=== PATIENT | male | born 1960 | race Caucasian/White ===

== ENCOUNTER 2021-03-29 11:43 | Inpatient (IN) | payer OTHER ==
[~2021-03-29] VITALS: Ht 177.8 cm; Wt 99.8 kg
[~2021-03-29 11:43] MED LIST: DOXYCYCLINE MO100 MG PO; PREDNISONE20 MG PO; VENTOLIN HFA IN18 GM INH; XARELTO15 MG PO
[2021-03-29 12:36] LABS: BASOPHIL 0.2 % (0-2); EOSINOPHIL 0 % (0-5); HCT 46.7 % (42.0-52.0); HGB 16.5 g/dl (13.2-18.0); LYMPHOCYTE 16.1 % (15-48); MCH 31.4 pg (25.0-31.0); MCHC 35.3 g/dL (32.0-36.0); MCV 88.8 fL (78.0-100.0); MONOCYTE 5.5 % (0-12); MPV 9.5 fL (6.0-9.5); NEUTROPHIL 77.5 % (41-80); NRBC 0; PLT 196 K/uL (150-400); RBC 5.26 M/uL (4.70-6.00)
[2021-03-29 12:40] LABS: INR 1.09 (0.9-1.2); PROTHROMBIN TIME 13.5 SECONDS (11.8-13.4)
[2021-03-29 12:53] LABS: BILIRUBIN - TOTAL 0.7 mg/dL (0.2-1.0); BUN/CREAT RATIO (CALC) 20.2 RATIO; CREATININE 1.04 mg/dL (0.67-1.17); GLOBULIN (CALCULATION) 3.9 g/dL; POTASSIUM 4.5 mmol/L (3.5-5.1); TOTAL PROTEIN 6.9 g/dL (6.4-8.2)
[2021-03-29 12:54] LABS: PRO-BNP 67 pg/mL (<125)
[2021-03-30 07:10] LABS: BASOPHIL 0.3 % (0-2); EOSINOPHIL 0 % (0-5); HGB 16.6 g/dl (13.2-18.0); LYMPHOCYTE 15.1 % (15-48); MCH 31.3 pg (25.0-31.0); MCHC 34.6 g/dL (32.0-36.0); MCV 90.6 fL (78.0-100.0); MONOCYTE 5.1 % (0-12); MPV 9.3 fL (6.0-9.5); NEUTROPHIL 78.6 % (41-80); NRBC 0; PLT 241 K/uL (150-400); RDW 12.1 % (11.5-14.0); WBC 6.8 K/uL (4.0-10.5)
[2021-03-30 08:06] LABS: BILIRUBIN - TOTAL 0.5 mg/dL (0.2-1.0); BUN/CREAT RATIO (CALC) 28.6 RATIO; CREATININE 0.84 mg/dL (0.67-1.17); GLOBULIN (CALCULATION) 3.8 g/dL; POTASSIUM 4.6 mmol/L (3.5-5.1); TOTAL PROTEIN 6.8 g/dL (6.4-8.2)
--- NOTE | 2021-03-31 10:31 | NUR ---
OXYGEN SAT DROPPED TO 77-88 ON 8 LITERS OF OXYGEN WITH OXIMIZER, SLIGHT SHORTNESS OF BREATH NOTED WITH CONVERSATION. OXYGEN INCREASED TO 10 LITERS OXYGEN SAT 90%
[2021-04-01 06:36] LABS: HCT 44.4 % (42.0-52.0); HGB 15.6 g/dl (13.2-18.0); MCH 31.5 pg (25.0-31.0); MCHC 35.1 g/dL (32.0-36.0); MCV 89.7 fL (78.0-100.0); MPV 9.3 fL (6.0-9.5); RBC 4.95 M/uL (4.70-6.00); RDW 12.6 % (11.5-14.0)
[2021-04-01 06:38] LABS: WBC 13.3 K/uL (4.0-10.5)
[2021-04-01 07:26] LABS: BUN/CREAT RATIO (CALC) 35.1 RATIO; CREATININE 0.74 mg/dL (0.67-1.17)
--- NOTE | 2021-04-01 14:07 | NUR ---
04/01/21 Mr. Larkin lives at home with his spouse. He is employed at [employer]. - Will monitor for 02 needs.
--- NOTE | 2021-04-02 20:42 | NUR ---
SHIPPING HAND NOTIFIED OF NEW ONSET OF LLQ PAIN AND ORDER FOR KUB PLACED.
[2021-04-03 07:13] LABS: BASOPHIL 0.3 % (0-2); EOSINOPHIL 0 % (0-5); HCT 45.1 % (42.0-52.0); HGB 15.6 g/dl (13.2-18.0); LYMPHOCYTE 6.7 % (15-48); MCH 31.2 pg (25.0-31.0); MCHC 34.6 g/dL (32.0-36.0); MCV 90.2 fL (78.0-100.0); MONOCYTE 3.5 % (0-12); NEUTROPHIL 87.4 % (41-80); NRBC 0; PLT 360 K/uL (150-400); RDW 12.5 % (11.5-14.0); WBC 12.8 K/uL (4.0-10.5)
[2021-04-03 08:01] LABS: ALBUMIN 2.5 g/dL (3.4-5.0); BILIRUBIN - TOTAL 0.6 mg/dL (0.2-1.0); BUN/CREAT RATIO (CALC) 36.8 RATIO; CREATININE 0.76 mg/dL (0.67-1.17); GLOBULIN (CALCULATION) 3.9 g/dL; POTASSIUM 5.1 mmol/L (3.5-5.1); TOTAL PROTEIN 6.4 g/dL (6.4-8.2)
[2021-04-04 04:14] LABS: BASOPHIL 0.5 % (0-2); EOSINOPHIL 0.7 % (0-5); HCT 44.4 % (42.0-52.0); HGB 15.5 g/dl (13.2-18.0); LYMPHOCYTE 13.2 % (15-48); MCH 31.5 pg (25.0-31.0); MCHC 34.9 g/dL (32.0-36.0); MCV 90.2 fL (78.0-100.0); MONOCYTE 5.8 % (0-12); NEUTROPHIL 75.5 % (41-80); NRBC 0; PLT 379 K/uL (150-400); RBC 4.92 M/uL (4.70-6.00); RDW 12.5 % (11.5-14.0); WBC 11.3 K/uL (4.0-10.5)
[2021-04-04 04:38] LABS: BUN/CREAT RATIO (CALC) 31.6 RATIO; C-REACTIVE PROTEIN 0.5 mg/dL (<=0.90); CREATININE 0.79 mg/dL (0.67-1.17); POTASSIUM 4.7 mmol/L (3.5-5.1)
[2021-04-04] MEDS ORDERED: DEXAMETHASONE 2M2 MG PO (14:08)
[2021-04-04] MEDS ORDERED: NASA MIST SALI177 ML (14:13)
== END 2021-04-04 17:50 | disposition home or self-care (01) | DRG 177 ==
LOC: FER 11:43 → FMS 14:08
PROVIDERS: Allergy & Immunology Allergy; Hospitalist; Internal Medicine; Physician Assistant; ADMIT Internal Medicine
PROC: XW033E5 Introduction of Remdesivir Anti-infective into Peripheral Vein, Percutaneous Approach, New Technology Group 5 (ICD-10-PCS; 2021-03-29)
PROC: 8E0ZXY6 Isolation (ICD-10-PCS; principal; 2021-03-30)
PROC: XW0DXM6 Introduction of Baricitinib into Mouth and Pharynx, External Approach, New Technology Group 6 (ICD-10-PCS; 2021-03-30)
DX: U07.1 COVID-19 (principal); J12.82 Pneumonia due to coronavirus disease 2019; J96.01 Acute respiratory failure with hypoxia; K76.0 Fatty (change of) liver, not elsewhere classified; Z86.718 Personal history of other venous thrombosis and embolism; Z79.01 Long term (current) use of anticoagulants; Z83.6 Family history of other diseases of the respiratory system
CPT/HCPCS: 36415; 71275; 74018; 80048; 80053; 82728; 83880; 84145; 84484; 85025; 85379; 85610; 86140; 93005; 94640; 94760; 94762; C9399; J1100; J1170; J1885; J7030; J7050; J8540; Q9967; U0002